=== PATIENT | female | born 1995 | race African-American/Black ===

== ENCOUNTER 2022-03-28 15:07 | Observation (INO) | payer OTHER ==
[~2022-03-28] VITALS: Ht 167.6 cm; Wt 72.6 kg
[2022-03-28 15:30] VITALS: BP 121/70
[2022-03-28] MEDS ORDERED: PREN-537 PO (16:35)
[2022-03-28] MEDS ORDERED: LOPERAMIDE 2 MG CAP PO ONE (18:15)
[2022-03-28] MEDS ORDERED: LOPERAMIDE 2 MG CAP ONE (18:23)
== END 2022-03-28 18:32 | disposition home or self-care (01) ==
LOC: MLD 15:07
PROVIDERS: ADMIT Obstetrics & Gynecology; ATTEND Obstetrics & Gynecology
DX: O99.891 Other specified diseases and conditions complicating pregnancy (principal); Z20.822 Contact with and (suspected) exposure to COVID-19; H53.8 Other visual disturbances; O26.892 Other specified pregnancy related conditions, second trimester; R10.9 Unspecified abdominal pain; R51.9 Headache, unspecified; R19.7 Diarrhea, unspecified; Z3A.23 23 weeks gestation of pregnancy
CPT/HCPCS: 76805; 87426; G0378; Q0092; 81000

== ENCOUNTER 2022-05-06 10:10 | Observation (INO) | payer OTHER ==
[~2022-05-06] VITALS: Ht 167.6 cm; Wt 74.8 kg
[~2022-05-06 10:10] MED LIST: PREN-537 PO
[2022-05-06] MEDS ORDERED: LACTATED RINGERS 1,000 ML IV SCH (11:15)
[2022-05-06 12:19] VITALS: BP 114/69
== END 2022-05-06 13:35 | disposition home or self-care (01) ==
LOC: MFCC 10:10
PROVIDERS: ADMIT Obstetrics & Gynecology; ATTEND Obstetrics & Gynecology
DX: O26.893 Other specified pregnancy related conditions, third trimester (principal); Z20.822 Contact with and (suspected) exposure to COVID-19; R10.9 Unspecified abdominal pain; Z3A.29 29 weeks gestation of pregnancy
CPT/HCPCS: 59025; 81000; 87426; 96360; 96361; G0378

== ENCOUNTER 2022-05-09 06:29 | Observation (INO) | payer OTHER ==
[~2022-05-09] VITALS: Ht 167.6 cm; Wt 72.6 kg
[2022-05-09] MEDS ORDERED: LACTATED RINGERS 1,000 ML IV ONE (07:50)
[2022-05-09] MEDS ORDERED: PANTOPRAZOLE 40 MG INJ VIAL IVP ONE (07:50)
[2022-05-09] MEDS ORDERED: FAMOTIDINE 20 MG/2 ML VIAL IVP ONE (07:50)
[2022-05-09 09:03] LABS: APPEARANCE,URINE CLEAR (CLEAR); BILIRUBIN,URINE NEGATIVE (NEGATIVE); BLOOD, URINE NEGATIVE (NEGATIVE); COLOR,URINE YELLOW (YELLOW); LEUKOCYTE ESTERASE ,URINE NEGATIVE (NEGATIVE); NITRITE, URINE NEGATIVE (NEGATIVE); PH,URINE 6.5 (5.0-9.0); UGLUCOSE NEGATIVE (NEGATIVE)
[2022-05-09 09:08] LABS: EOSINOPHILS % (AUTO) 0.5 % (0.0-4.0); HEMATOCRIT 31.8 % (36-48); HEMOGLOBIN 10.4 g/dL (12.0-16.0); LYMPHOCYTES # (AUTO) 0.9 K/uL (2.5-16.5); LYMPHOCYTES % (AUTO) 13.7 % (20.5-51.1); MEAN CORPUSCULAR HEMOGLOBIN 30 pg (27-31); MEAN CORPUSCULAR HGB CONC 33 g/dL (33-37); MEAN CORPUSCULAR VOLUME 90.4 fL (80-94); MONOCYTES # (AUTO) 0.3 K/uL (0.8-1.0); MONOCYTES % (AUTO) 4.8 % (1.7-9.3); NEUTROPHILS # (AUTO) 5.1 K/uL (1.8-7.7); PLATELET COUNT (AUTO) 270 K/uL (140-450); RED BLOOD CELL COUNT(AUTO) 3.52 MIL/uL (4.20-5.40); RED CELL DISTRIBUTION WIDTH 14.2 % (11.6-13.7); WHITE BLOOD COUNT (AUTO) 6.3 K/uL (4.8-10.8)
[2022-05-09] MEDS ORDERED: LACTATED RINGERS 1,000 ML IV SCH (09:10)
[2022-05-09 09:21] LABS: ALBUMIN 2.5 g/dL (3.4-5.0); ANION GAP 8.2 (8-16); CREATININE 0.5 mg/dL (0.6-1.3); POTASSIUM 3.2 mmol/L (3.5-5.1); TOTAL BILIRUBIN 0.2 mg/dL (0.0-1.0)
--- NOTE | 2022-05-09 10:07 | NUR ---
PATIENT HAS BEEN SCREENED AND CATEGORIZED LOW NUTRITION RISK. PATIENT WILL BE SEEN WITHIN 7 DAYS OF ADMISSION. 05/16/22 REVIEWED BY SILVANA GOODMAN RD
[2022-05-09] MEDS ORDERED: POTASSIUM CHLORIDE 10 MEQ TABER PO SCH (11:05)
[2022-05-09] MEDS ORDERED: ACETAMINOPHEN 100 ML IV PRN (11:05)
== END 2022-05-09 13:00 | disposition home or self-care (01) ==
LOC: MLD 06:29
PROVIDERS: ADMIT Obstetrics & Gynecology; ATTEND Obstetrics & Gynecology
DX: O26.893 Other specified pregnancy related conditions, third trimester (principal); R10.9 Unspecified abdominal pain; R12 Heartburn; O99.283 Endocrine, nutritional and metabolic diseases complicating pregnancy, third trimester; E87.6 Hypokalemia; O99.013 Anemia complicating pregnancy, third trimester; D50.9 Iron deficiency anemia, unspecified; Z3A.29 29 weeks gestation of pregnancy
CPT/HCPCS: 36415; 76817; 76819; 80053; 81003; 82731; 85025; 96361; 96374; 96375; C9113; G0378; G0379; J3490; Q0092; 59025; J7120

== ENCOUNTER 2022-06-02 11:01 | Observation (INO) | payer OTHER ==
[~2022-06-02] VITALS: Ht 170.2 cm; Wt 79.4 kg
[2022-06-02 11:36] VITALS: BP 121/80
[2022-06-02] MEDS ORDERED: PRETAB PO (11:54)
[2022-06-02] MEDS ORDERED: MAGN100T13 PO (11:55)
[2022-06-02 12:10] LABS: APPEARANCE,URINE CLEAR (CLEAR); BILIRUBIN,URINE NEGATIVE (NEGATIVE); BLOOD, URINE NEGATIVE (NEGATIVE); COLOR,URINE YELLOW (YELLOW); LEUKOCYTE ESTERASE ,URINE TRACE (NEGATIVE); NITRITE, URINE NEGATIVE (NEGATIVE); PH,URINE 7.5 (5.0-9.0); UGLUCOSE NEGATIVE (NEGATIVE)
[2022-06-02 12:36] LABS: ALBUMIN 2.5 g/dL (3.4-5.0); ANION GAP 13.6 (8-16); CARBON DIOXIDE 22.8 mmol/L (21-32); CREATININE 0.5 mg/dL (0.6-1.3); POTASSIUM 3.4 mmol/L (3.5-5.1); TOTAL BILIRUBIN 0.3 mg/dL (0.0-1.0)
[2022-06-02 12:51] LABS: BASOPHILS % (AUTO) 0.2 % (0.0-2.0); EOSINOPHILS % (AUTO) 0.5 % (0.0-4.0); HEMATOCRIT 30.5 % (36-48); HEMOGLOBIN 10.2 g/dL (12.0-16.0); LYMPHOCYTES % (AUTO) 17.6 % (20.5-51.1); MEAN CORPUSCULAR HEMOGLOBIN 31 pg (27-31); MEAN CORPUSCULAR HGB CONC 33 g/dL (33-37); MEAN CORPUSCULAR VOLUME 91.8 fL (80-94); MONOCYTES # (AUTO) 0.5 K/uL (0.8-1.0); NEUTROPHILS # (AUTO) 4.3 K/uL (1.8-7.7); NEUTROPHILS % (AUTO) 73.7 % (42.2-75.2); PLATELET COUNT (AUTO) 226 K/uL (140-450); RED BLOOD CELL COUNT(AUTO) 3.32 MIL/uL (4.20-5.40); RED CELL DISTRIBUTION WIDTH 15.2 % (11.6-13.7); WHITE BLOOD COUNT (AUTO) 5.8 K/uL (4.8-10.8)
[2022-06-02 13:00] LABS: PROTHROMBIN TIME 9.9 secs (10.8-13.4)
[2022-06-02 13:02] LABS: WBC,URINE 16-25 (MOD) /HPF (0-5)
[2022-06-02 15:02] LABS: URINE TOTAL PROTEIN 10.2 mg/dL (0-12)
[2022-06-02] MEDS ORDERED: ACETAMINOPHEN 325 MG TAB PO SCH (15:40)
[2022-06-02] MEDS ORDERED: ACETAMINOPHEN 325 MG TAB PO PRN (15:40)
[2022-06-02] MEDS ORDERED: ACETAMINOPHEN 325 MG TAB ONE (15:41)
== END 2022-06-02 16:48 | disposition home or self-care (01) ==
LOC: MLD 11:01
PROVIDERS: ADMIT Obstetrics & Gynecology; ATTEND Obstetrics & Gynecology
DX: O62.9 Abnormality of forces of labor, unspecified (principal); O26.893 Other specified pregnancy related conditions, third trimester; H53.8 Other visual disturbances; R51.9 Headache, unspecified; Z3A.33 33 weeks gestation of pregnancy; Z87.51 Personal history of pre-term labor
CPT/HCPCS: 36415; 76805; 76817; 80053; 81001; 82570; 82731; 84550; 85025; 85384; 85610; 85730; 87426; G0378; G0379; Q0092

== ENCOUNTER 2022-06-21 05:50 | Inpatient (IN) | payer OTHER ==
[~2022-06-21] VITALS: Ht 170.2 cm; Wt 83.0 kg
[2022-06-21 06:30] VITALS: BP 131/87
[2022-06-21] MEDS ORDERED: PRETAB PO (06:36)
[2022-06-21] MEDS: LACTATED RINGERS 1,000 ML IV SCH ×2 (07:45→16:07)
[2022-06-21] MEDS ORDERED: ACETAMINOPHEN 325 MG TAB PO PRN (07:50)
[2022-06-21] MEDS ORDERED: ACETAMINOPHEN 325 MG TAB ONE (07:57)
[2022-06-21 07:58] LABS: BASOPHILS % (AUTO) 0.1 % (0.0-2.0); EOSINOPHILS % (AUTO) 0.5 % (0.0-4.0); HEMATOCRIT 28.6 % (36-48); HEMOGLOBIN 9.4 g/dL (12.0-16.0); MEAN CORPUSCULAR HEMOGLOBIN 27 pg (27-31); MEAN CORPUSCULAR HGB CONC 33 g/dL (33-37); MEAN CORPUSCULAR VOLUME 81.6 fL (80-94); MONOCYTES # (AUTO) 0.7 K/uL (0.8-1.0); NEUTROPHILS # (AUTO) 5.2 K/uL (1.8-7.7); NEUTROPHILS % (AUTO) 74.4 % (42.2-75.2); PLATELET COUNT (AUTO) 281 K/uL (140-450); RED CELL DISTRIBUTION WIDTH 15.4 % (11.6-13.7); WHITE BLOOD COUNT (AUTO) 6.9 K/uL (4.8-10.8)
[2022-06-21 08:18] LABS: URINE TOTAL PROTEIN 22.4 mg/dL (0-12)
[2022-06-21 08:20] LABS: ALBUMIN 2.5 g/dL (3.4-5.0); CARBON DIOXIDE 22.4 mmol/L (21-32); CREATININE 0.4 mg/dL (0.6-1.3); POTASSIUM 3.4 mmol/L (3.5-5.1); TOTAL BILIRUBIN 0.3 mg/dL (0.0-1.0)
[2022-06-21 08:23] LABS: APPEARANCE,URINE CLEAR (CLEAR); BILIRUBIN,URINE NEGATIVE (NEGATIVE); BLOOD, URINE TRACE-I (NEGATIVE); COLOR,URINE YELLOW (YELLOW); LEUKOCYTE ESTERASE ,URINE TRACE (NEGATIVE); NITRITE, URINE NEGATIVE (NEGATIVE); UGLUCOSE NEGATIVE (NEGATIVE)
[2022-06-21 08:33] LABS: OTHER CASTS, URINE None Seen /LPF (None Seen)
[2022-06-21 08:45] LABS: PROTHROMBIN TIME 9.4 secs (10.8-13.4)
[2022-06-21] MEDS ORDERED: POTASSIUM CHLORIDE 10 MEQ TABER PO ONE (09:20)
[2022-06-21] MEDS ORDERED: MAG SULF 2000 MG/WATER PREMIX 100 ML IV ONE (09:20)
[2022-06-21] MEDS ORDERED: TERBUTALINE 1 MG/ML VIAL SUBQ SCH (09:20)
[2022-06-21] MEDS ORDERED: TERBUTALINE 1 MG/ML VIAL SUBQ ONE (09:24)
[2022-06-21] MEDS ORDERED: BETAMETH ACET/BETAMETH NA PH 30 MG/5 ML VIAL IM ONE (09:26)
[2022-06-21] MEDS ORDERED: POTASSIUM CHLORIDE 10 MEQ TABER PO SCH (09:30)
[2022-06-21] MEDS ORDERED: BETAMETH ACET/BETAMETH NA PH 30 MG/5 ML VIAL IM SCH (09:45)
[2022-06-21] MEDS: MAG SULF 20 GM/H2O PREMIX DRIP 500 ML IV PRN ×2 (10:21→20:50)
[2022-06-21] MEDS ORDERED: METHYLERGONOVINE 0.2 MG/ML AMP IM PRN (11:20)
[2022-06-21] MEDS ORDERED: LACTATED RINGERS 500 ML IV SCH (11:20)
[2022-06-21] MEDS ORDERED: CARBOPROST 250 MCG/ML AMP IM PRN (11:20)
[2022-06-21] MEDS: MORPHINE SULFATE 10 MG/ML VIAL IVP PRN ×2 (13:55→22:00)
[2022-06-21] MEDS: ONDANSETRON 4 MG/2 ML VIAL IVP PRN ×2 (13:58→22:01)
[2022-06-21 22:00] VITALS: BP 134/66
[2022-06-22] MEDS: LACTATED RINGERS 1,000 ML IV SCH (06:06)
[2022-06-22] MEDS: MAG SULF 20 GM/H2O PREMIX DRIP 500 ML IV PRN (07:11)
--- NOTE | 2022-06-22 08:50 | NUR ---
PATIENT HAS BEEN SCREENED AND CATEGORIZED LOW NUTRITION RISK. PATIENT WILL BE SEEN WITHIN 7 DAYS OF ADMISSION. 06/22/22-06/29/[address]
[2022-06-22] MEDS ORDERED: BETAMETH ACET/BETAMETH NA PH 30 MG/5 ML VIAL IM ONE (09:20)
[2022-06-22] MEDS ORDERED: BETAMETH ACET/BETAMETH NA PH 30 MG/5 ML VIAL IM SCH (09:45)
[2022-06-22] MEDS ORDERED: DOCUSATE SOD/SENNA 50/8.6 MG 1 TAB PO SCH ×2 (12:15→21:00)
[2022-06-22] MEDS ORDERED: DOCUSATE SOD/SENNA 50/8.6 MG 1 TAB ONE (12:17)
== END 2022-06-22 13:32 | disposition home or self-care (01) | DRG 566 ==
LOC: MLD 05:50 → OBSVTOIN 09:21
PROVIDERS: ADMIT Obstetrics & Gynecology; ATTEND Obstetrics & Gynecology
DX: O14.03 Mild to moderate pre-eclampsia, third trimester (principal); Z20.822 Contact with and (suspected) exposure to COVID-19; Z3A.35 35 weeks gestation of pregnancy
CPT/HCPCS: 36415; 80053; 81001; 82570; 83735; 84550; 85025; 85384; 85610; 85730; 86592; 86886; 86900; 86901; 87086; J0702; J2270; J2405; J3105; J3475

== ENCOUNTER 2022-06-26 14:58 | Inpatient (IN) | payer OTHER ==
[~2022-06-26] VITALS: Ht 170.2 cm; Wt 83.9 kg
[~2022-06-26 14:58] MED LIST changes: -PREN-537 PO; +PRETAB PO
[2022-06-26] MEDS ORDERED: LACTATED RINGERS 500 ML IV SCH (15:35)
[2022-06-26] MEDS ORDERED: OXYTOCIN 10 UNITS/ML VIAL IM SCH (15:35)
[2022-06-26] MEDS ORDERED: METHYLERGONOVINE 0.2 MG/ML AMP IM PRN (15:35)
[2022-06-26] MEDS ORDERED: CARBOPROST 250 MCG/ML AMP IM PRN (15:35)
[2022-06-26 15:56] LABS: BASOPHILS % (AUTO) 0.1 % (0.0-2.0); EOSINOPHILS % (AUTO) 0.4 % (0.0-4.0); HEMATOCRIT 30.7 % (36-48); HEMOGLOBIN 9.8 g/dL (12.0-16.0); LYMPHOCYTES # (AUTO) 1.4 K/uL (2.5-16.5); LYMPHOCYTES % (AUTO) 16.4 % (20.5-51.1); MEAN CORPUSCULAR HEMOGLOBIN 26 pg (27-31); MEAN CORPUSCULAR HGB CONC 32 g/dL (33-37); MEAN CORPUSCULAR VOLUME 80.6 fL (80-94); NEUTROPHILS # (AUTO) 6.1 K/uL (1.8-7.7); NEUTROPHILS % (AUTO) 71.1 % (42.2-75.2); PLATELET COUNT (AUTO) 315 K/uL (140-450); RED BLOOD CELL COUNT(AUTO) 3.81 MIL/uL (4.20-5.40); RED CELL DISTRIBUTION WIDTH 16.2 % (11.6-13.7); WHITE BLOOD COUNT (AUTO) 8.6 K/uL (4.8-10.8)
[2022-06-26 16:15] LABS: PROTHROMBIN TIME 9.6 secs (10.8-13.4)
[2022-06-26 16:22] LABS: ALBUMIN 2.8 g/dL (3.4-5.0); CARBON DIOXIDE 23.4 mmol/L (21-32); CREATININE 0.5 mg/dL (0.6-1.3); POTASSIUM 3.4 mmol/L (3.5-5.1); TOTAL BILIRUBIN 0.3 mg/dL (0.0-1.0)
[2022-06-26] MEDS: LACTATED RINGERS 1,000 ML IV SCH (16:29)
[2022-06-26 16:34] VITALS: BP 120/78
[2022-06-26 16:43] LABS: APPEARANCE,URINE CLEAR (CLEAR); BILIRUBIN,URINE NEGATIVE (NEGATIVE); BLOOD, URINE TRACE-L (NEGATIVE); COLOR,URINE YELLOW (YELLOW); LEUKOCYTE ESTERASE ,URINE 1+ (NEGATIVE); NITRITE, URINE NEGATIVE (NEGATIVE); UGLUCOSE NEGATIVE (NEGATIVE)
[2022-06-26] MEDS ORDERED: OXYTOCIN 20 UNITS in LACTATED RINGERS 1,000 ML IV SCH (16:45)
[2022-06-26] MEDS ORDERED: OXYTOCIN 20 UNITS/LR PREMIX 1,000 ML IV ONE (16:52)
[2022-06-26 16:55] LABS: RBC,URINE 0-5 /HPF (0-5)
[2022-06-26] MEDS ORDERED: MORPHINE SULFATE 10 MG/ML VIAL ONE (19:55)
[2022-06-27] MEDS: MORPHINE SULFATE 5 MG/ML VIAL IVP PRN ×3 (01:54→14:06)
[2022-06-27] MEDS ORDERED: MORPHINE SULFATE 10 MG/ML VIAL ONE ×3 (04:36→23:14)
[2022-06-27] MEDS: LACTATED RINGERS 1,000 ML IV SCH ×3 (06:07→21:34)
--- NOTE | 2022-06-27 08:59 | NUR ---
PATIENT HAS BEEN SCREENED AND CATEGORIZED LOW NUTRITION RISK. PATIENT WILL BE SEEN WITHIN 7 DAYS OF ADMISSION. 07/03/22 REVIEWED BY SILVANA GOODMAN RD
[2022-06-27] MEDS: ONDANSETRON 4 MG/2 ML VIAL IVP PRN ×2 (10:31→23:22)
[2022-06-27 23:21] VITALS: BP 113/73
[2022-06-27] MEDS ORDERED: OXYTOCIN 20 UNITS/LR PREMIX 1,000 ML IV ONE (23:33)
[2022-06-28] MEDS: LACTATED RINGERS 1,000 ML IV SCH ×2 (06:07→11:49)
[2022-06-28] MEDS ORDERED: ROPIVACAINE 0.2%/NS PREMIX 200 ML EPI ONE (11:26)
[2022-06-28] MEDS ORDERED: MISOPROSTOL 200 MCG TAB ONE (15:03)
[2022-06-28] MEDS ORDERED: METHYLERGONOVINE 0.2 MG/ML AMP IM PRN (15:40)
[2022-06-28] MEDS ORDERED: IBUPROFEN 800 MG TAB PO PRN (15:40)
[2022-06-28] MEDS ORDERED: bisacodyL 5 MG TABEC PO PRN (15:40)
[2022-06-28] MEDS ORDERED: BENZOCAINE/MENTHOL 20%-0.5% 60 GM CAN TP PRN (15:40)
[2022-06-28] MEDS ORDERED: SIMETHICONE 80 MG TAB.CHEW PO PRN (15:40)
[2022-06-28] MEDS ORDERED: OXYTOCIN 10 UNITS/ML VIAL IM PRN (15:40)
[2022-06-28] MEDS ORDERED: MEASLES, MUMPS, AND RUBELLA 1 VIAL SQVAC ONE (15:40)
[2022-06-28] MEDS ORDERED: METHYLERGONOVINE 0.2 MG TAB PO PRN (15:40)
[2022-06-28] MEDS ORDERED: IBUPROFEN 600 MG TAB PO PRN (15:40)
[2022-06-28] MEDS ORDERED: MEASLES, MUMPS, AND RUBELLA 1 VIAL SQVAC SCH (15:50)
[2022-06-28] MEDS ORDERED: MISOPROSTOL 200 MCG TAB PO SCH (16:50)
[2022-06-28] MEDS: DOCUSATE SODIUM 100 MG GELCAP PO PRN (22:00)
[2022-06-29 08:20] LABS: HEMATOCRIT 27.3 % (36-48); HEMOGLOBIN 8.8 g/dL (12.0-16.0)
[2022-06-29] MEDS: DOCUSATE SODIUM 100 MG GELCAP PO PRN (11:45)
== END 2022-06-29 21:12 | disposition home or self-care (01) | DRG 560 ==
LOC: MLD 14:58 → MFCC 06-28 17:35
PROVIDERS: ADMIT Obstetrics & Gynecology; ATTEND Obstetrics & Gynecology
PROC: 10D07Z6 Extraction of Products of Conception, Vacuum, Via Natural or Artificial Opening (ICD-10-PCS; principal; 2022-06-28)
PROC: 3E0R3BZ Introduction of Anesthetic Agent into Spinal Canal, Percutaneous Approach (ICD-10-PCS; 2022-06-28)
PROC: 00HU33Z Insertion of Infusion Device into Spinal Canal, Percutaneous Approach (ICD-10-PCS; 2022-06-28)
DX: O98.52 Other viral diseases complicating childbirth (principal); Z37.0 Single live birth; U07.1 COVID-19; O75.81 Maternal exhaustion complicating labor and delivery; Z3A.36 36 weeks gestation of pregnancy; O69.1XX0 Labor and delivery complicated by cord around neck, with compression, not applicable or unspecified
CPT/HCPCS: 36415; 51702; 76815; 80053; 81001; 85018; 85025; 85610; 85730; 86592; 86886; 86900; 86901; 87086; J2270; J2405; J2590; J2795; J7120; Q0092